=== PATIENT | female | born 1995 | race African-American/Black ===

== ENCOUNTER 2017-06-22 22:53 | Emergency (ER) | payer SELFPAY ==
[~2017-06-22] VITALS: Ht 160 cm; Wt 46.0 kg
[2017-06-22 22:58] VITALS: BP 111/70
== END 2017-06-23 03:16 | disposition left against medical advice (07) ==
LOC: ER 22:53
DX: N39.8 Other specified disorders of urinary system (principal); Z53.21 Procedure and treatment not carried out due to patient leaving prior to being seen by health care provider

== ENCOUNTER 2017-07-28 13:17 | Emergency (ER) | payer OTHER ==
[~2017-07-28] VITALS: Ht 157.5 cm; Wt 62.0 kg
[2017-07-28] MEDS ORDERED: IBUPROFEN 600MG TABLET PO STA (14:23)
[2017-07-28 14:50] LABS: CLARITY URINE CLEAR (CLEAR); COLOR URINE YELLOW (YELLOW); GLUCOSE URINE NEGATIVE (NEGATIVE); KETONES URINE NEGATIVE (NEGATIVE); LEUKOCYTE ESTERASE URINE NEGATIVE (NEGATIVE); NITRITE URINE NEGATIVE (NEGATIVE); OCCULT BLOOD URINE 3+ (NEGATIVE); PH URINE 6.5 (4.5-8.0); PROTEIN URINE TRACE (NEGATIVE); SPECIFIC GRAVITY URINE 1.029 (1.005-1.030)
[2017-07-28 15:17] LABS: *AMPHETAMINES SCREEN URINE NEGATIVE (NEGATIVE); *BARBITURATES SCREEN URINE NEGATIVE (NEGATIVE); *BENZODIAZEPINES SCREEN URINE NEGATIVE (NEGATIVE); *COCAINE SCREEN URINE NEGATIVE (NEGATIVE); CANNABINOID URINE SCREEN PRESUMTIVE POSITIVE (NEGATIVE); METHADONE URINE SCREEN NEGATIVE (NEGATIVE); OPIATES URINE SCREEN NEGATIVE (NEGATIVE); PHENCYCLIDINE URINE SCREEN NEGATIVE (NEGATIVE)
[2017-07-28 15:46] LABS: BASOPHILS % 0.9 % (0.0-2.0); EOSINOPHILS % 0.2 % (0.0-5.0); HEMATOCRIT. 38.4 % (36.0-48.0); HEMOGLOBIN. 12.5 g/dL (12.0-16.0); LYMPHOCYTES % 21.6 % (20.0-50.0); MEAN CORPUSCULAR VOLUME 86.4 fL (81.0-99.0); MONOCYTES % 7.8 % (2.0-8.0); NEUTROPHILS % 69.5 % (40.0-76.0); PLATELET 161 x1000/uL (130-400); RED BLOOD CELL COUNT 4.44 mill/uL (4.2-5.4); RED CELL DISTRIBUTION WIDTH 14.7 % (11.6-14.6)
[2017-07-28 15:48] LABS: CHLORIDE 107 mEq/L (98-107)
[2017-07-28 15:49] LABS: PROTHROMBIN TIME 10.7 sec (9.4-11.6)
[2017-07-28 15:53] LABS: CARBON DIOXIDE 27 mEq/L (21-32)
[2017-07-28] MEDS ORDERED: AZITHROMYCIN 500 MG TABLET PO ONE (17:15)
[2017-07-28] MEDS ORDERED: LIDOCAINE HCL 1% 20ML VIAL (Pyxis) INJ MC ONE (17:15)
[2017-07-28] MEDS ORDERED: CEFTRIAXONE SODIUM 250 MG/VIAL IM ONE (17:15)
[2017-07-28 17:45] VITALS: BP 128/70
[2017-08-02 04:20] LABS: CHLAMYDIA TRACHOMATIS NAA Negative (Negative); NEISSERIA GONORRHOEAE NAA Negative (Negative)
== END 2017-07-28 17:57 | disposition home or self-care (01) ==
LOC: ER 13:50
DX: A59.01 Trichomonal vulvovaginitis (principal); B37.3 Candidiasis of vulva and vagina; F17.200 Nicotine dependence, unspecified, uncomplicated
CPT/HCPCS: 36415; 76830; 76856; 80053; 80305; 81001; 81025; 83690; 85025; 85610; 87210; 87491; 87591; 96372; 99285; J0696; J3490; Z7610

== ENCOUNTER 2018-02-11 20:36 | Emergency (ER) | payer MEDICAID, OTHER ==
[~2018-02-11] VITALS: Ht 157.5 cm; Wt 66.0 kg
[2018-02-11 21:05] VITALS: BP 118/67
[2018-02-11] MEDS ORDERED: ACETAMINOPHEN 325MG TABLET PO STA (21:10)
[2018-02-11 21:43] LABS: BASOPHILS % 0.9 % (0.0-2.0); HEMATOCRIT. 39.5 % (36.0-48.0); HEMOGLOBIN. 12.8 g/dL (12.0-16.0); LYMPHOCYTES % 41.5 % (20.0-50.0); MEAN CORPUSCULAR HEMOGLOBIN 28.2 pg (28.0-32.0); MEAN CORPUSCULAR VOLUME 87.2 fL (81.0-99.0); MEAN PLATELET VOLUME 9.5 fl (7.4-10.4); MONOCYTES % 12.7 % (2.0-8.0); NEUTROPHILS % 43.9 % (40.0-76.0); PLATELET 163 x1000/uL (130-400); RED BLOOD CELL COUNT 4.53 mill/uL (4.2-5.4)
[2018-02-11 21:44] LABS: CHLORIDE 109 mEq/L (98-107)
[2018-02-11 21:51] LABS: PROTHROMBIN TIME 10.6 sec (9.4-11.6)
[2018-02-11 22:49] LABS: CLARITY URINE CLEAR (CLEAR); COLOR URINE YELLOW (YELLOW); KETONES URINE NEGATIVE (NEGATIVE); LEUKOCYTE ESTERASE URINE NEGATIVE (NEGATIVE); NITRITE URINE NEGATIVE (NEGATIVE); OCCULT BLOOD URINE NEGATIVE (NEGATIVE); PH URINE 6.5 (4.5-8.0); PROTEIN URINE NEGATIVE (NEGATIVE); SPECIFIC GRAVITY URINE 1.025 (1.005-1.030); UROBILINOGEN URINE 0.2 E.U./dL (0.2-1.0)
== END 2018-02-11 22:45 | disposition left against medical advice (07) ==
LOC: ER 20:36
DX: N93.9 Abnormal uterine and vaginal bleeding, unspecified (principal); R10.9 Unspecified abdominal pain; R11.0 Nausea; R30.0 Dysuria
CPT/HCPCS: 36415; 80053; 81003; 81025; 83690; 85025; 85610; 86850; 86900; 99284

== ENCOUNTER 2018-09-22 17:37 | Emergency (ER) | payer MEDICAID | END 2018-09-22 18:38 | disposition left against medical advice (07) | LOC: ER 17:37 | DX: R10.9 Unspecified abdominal pain (principal); Z53.21 Procedure and treatment not carried out due to patient leaving prior to being seen by health care provider ==

== ENCOUNTER 2018-11-26 16:36 | Emergency (ER) | payer MEDICAID ==
[~2018-11-26] VITALS: Ht 157.5 cm; Wt 64.0 kg
[2018-11-26 16:56] VITALS: BP 114/72
== END 2018-11-26 20:55 | disposition left against medical advice (07) ==
LOC: ER 16:36
DX: R10.2 Pelvic and perineal pain (principal); Z53.21 Procedure and treatment not carried out due to patient leaving prior to being seen by health care provider